=== PATIENT | female | born 1995 | race Caucasian/White ===

== ENCOUNTER 2018-08-07 11:54 | Emergency (ER) | payer BC ==
[~2018-08-07] VITALS: Ht 165.1 cm; Wt 61.6 kg
[~2018-08-07 11:54] MED LIST: ACET1TAB40 PO; ACET500C5 PO; HYDR-4011 PO; IBUP-1542 PO; MAG-19 PO; OMEP20CA16 PO; ONDA4TAB14 PO
[2018-08-07 11:57] VITALS: BP 135/59; PULSE 106; RESP 20; Ht 165.1 cm; Wt 61.6 kg
--- NOTE | 2018-08-07 13:14 | ERD ---
ER Documentation Chief Complaint Chief Complaint Complains of a cough with chest wall pain x 3 days HPI 22-year-old female presents with complaint of cough which is apparent for the past 3 days. States that she went to her primary care provider 3 days ago was diagnosed with bronchitis and Otitis media and and has been taking Augmentin since yesterday. States that the cough was really bad last night she was having a difficult time going to sleep because of it. Also states she is been having fevers which has been taking Tylenol. Last dose was yesterday. She has been taking Robitussin for the cough but is not been effective. Denies past medical history. Denies allergies. Denies medications. Denies surgeries. Denies alcohol, tobacco, drug use. Up to date on vaccines. ROS All systems reviewed and are negative except as per history of present illness. Medications Home Meds Active Scripts Promethazine HCl/Codeine (Prometh-Codein 6.25-10 mg/5 ml) 5 Ml Syrup, 5 ML PO Q4 for cough, #4 OZ Prov:KAYLEE PATRICIA 08/07/18 Albuterol Sulfate* (Ventolin HFA*) 18 Gm Hfa.aer.ad, 2 PUFF INHALATION Q4H, #1 INHALER Prov:KAYLEE PATRICIA 08/07/18 Magaldrate/Simethicone* (Mylanta*) 355 Ml Susp, 30 ML PO QID PRN for GASTROINTESTINAL UPSET, #1 BOTTLE Prov:KEISHA FLYNN NP 04/09/16 Acetaminophen* (Tylophen*) 500 Mg Capsule, 2 CAP PO Q8H PRN for PAIN AND OR ELEVATED TEMP, #20 CAP Prov:KEISHA FLYNN NP 04/09/16 Ondansetron (Ondansetron Odt) 4 Mg Tab.rapdis, 4 MG PO Q8 PRN for NAUSEA AND/OR VOMITING, #30 TAB Prov:KEISHA FLYNN NP 04/09/16 Hydrocodone/Acetaminophen ([place] 5-325 Tablet) 1 Each Tablet, 1 TAB PO Q6H PRN for PAIN, #20 TAB Prov:KEISHA FLYNN NP 04/09/16 Omeprazole* (Omeprazole*) 20 Mg Capsule.dr, 20 MG PO DAILY, #30 Prov:KEISHA FLYNN [employer] 04/09/16 Acetaminophen-Codeine* (Acetaminophen-Cod #3*) 300-30 Mg Tab, 1 TAB PO Q4H PRN for PAIN LEVEL 6-10, #15 TAB Prov:CHOGEORGEA 12/04/14 Ibuprofen* (Motrin*) 600 Mg Tab, 600 MG PO Q6 for PAIN LEVEL 1-5, #15 TAB Prov:CHOLINDA 12/04/14 Allergies Allergies: Coded Allergies: No Known Allergy (Unverified , 03/29/13) PMhx/Soc Medical and Surgical Hx: pt denies Medical Hx, pt denies Surgical Hx Hx Alcohol Use: No Hx Substance Use: No Hx Tobacco Use: No Smoking Status: Never smoker FmHx Family History: No diabetes, No coronary disease, No other Physical Exam Vitals Vital Signs Date Temp Pulse Resp B/P (MAP) Pulse Ox O2 O2 Flow FiO2 Time Delivery Rate 08/07/18 98.6 106 20 135/59 98 11:57 (84) Physical Exam Const: No acute distress Head: Atraumatic Eyes: Normal Conjunctiva ENT: Normal External Ears, Nose and Mouth. TMs are nonedematous or erythematous bilaterally with no bulging. Neck: Full range of motion. No meningismus. Resp: Adventitious sounds heard in the upper right lung vega. Otherwise clear to auscultation. Cardio: Regular rate and rhythm, no murmurs Abd: Soft, non tender, non distended. Normal bowel sounds Skin: No petechiae or rashes Back: No midline or flank tenderness Ext: No cyanosis, or edema Neur: Awake and alert Psych: Normal Mood and Affect Results 24 hrs Laboratory Tests Test 08/07/18 13:21 POC Beta HCG, Qualitative NEGATIVE Current Medications Medications Dose Sig/Hortencia Start Time Status Last (Trade) Ordered Route PRN Stop Time Admin Dose Reason Admin Promethazine 10 ml ONCE ONCE 08/07/18 DC 08/07/18 HCl/ PO 13:30 13:22 Codeine 08/07/18 13:31 (Phenergan/ Codeine) Procedures/MDM DIAGNOSTIC IMAGING REPORT Patient: CAM MEZA : 1995 Age: 23 Sex: F MR #: [id number] DOS: 08/07/18 1306 Ordering MD: KAYLEE PATRICIA Location: [facility] Room/Bed: PROCEDURE: XR Chest. CLINICAL INDICATION: chest pain, cough TECHNIQUE: Single frontal view of the chest was obtained COMPARISON: None FINDINGS: The heart and mediastinum are within normal limits. The lungs are clear. There is no pleural effusion or pneumothorax. RPTAT: AA IMPRESSION: No acute disease. .Kyaw Stanley MD, MD Date Time Electronically viewed and signed by .Kyaw Stanley MD, MD on 08/07/2018 13:32 .S/ CC: KAYLEE PATRICIA [phone] 22-year-old female presents with complaint of cough which is apparent for the past 3 days. States that she went to her primary care provider 3 days ago was diagnosed with bronchitis and Otitis media and and has been taking Augmentin since yesterday. States that the cough was really bad last night she was having a difficult time going to sleep because of it. Also states she is been having fevers which has been taking Tylenol. Last dose was yesterday. She has been taking Robitussin for the cough but is not been effective. Denies past medical history. Denies allergies. Denies medications. Denies surgeries. Denies alcohol, tobacco, drug use. Up to date on vaccines. Chest x-ray was performed and results within normal limits. I have low suspicion for strep throat based on history and exam findings, as well as patient not meeting centor criteria for rapid strep testing. I have low suspicion for bacterial sinusitis, pneumonia, tuberculosis, meningitis, pneumothorax, PE, aspirated foreign body, respiratory distress, acute heart failure or other life threatening etiology based on patient history and exam findings. Most likely etiology is viral URI and no further tests are necessary. Patient given rx for promethazine with codeine and albuterol. Patient advised to rest and stay well hydrated. Patient discharged with strict ER precautions. Patient advised to follow up with PMD. All questions answered at discharge. Departure Diagnosis: Primary Impression: URI (upper respiratory infection) URI type: unspecified viral URI Qualified Codes: J06.9 - Acute upper respiratory infection, unspecified Condition: KAYLEE Toth Aug 07, 2018 13:14
[2018-08-07] MEDS ORDERED: ALBU18HF INHALATION (13:16)
[2018-08-07] MEDS ORDERED: PROM5SYR2 PO (13:16)
[2018-08-07] MEDS ORDERED: PROMETHAZINE/CODEINE 5ML CUP PO ONE (13:30)
== END 2018-08-07 15:03 | disposition home or self-care (01) ==
LOC: FTE 11:54
DX: J06.9 Acute upper respiratory infection, unspecified (principal)
CPT/HCPCS: 71045; 81025